=== PATIENT | male | born 1945 | race Caucasian/White ===

== ENCOUNTER 2021-05-28 05:04 | Observation (INO) | payer MEDICARE, OTHER ==
[~2021-05-28] VITALS: Ht 180.3 cm; Wt 81.6 kg
[2021-05-28 05:40] LABS: HEMOGLOBIN 15.6 gm/dl (14.0-17.5); RED BLOOD COUNT 4.64 M/UL (4.20-5.50); WHITE BLOOD COUNT 15.2 K/UL (4.5-11.0)
[2021-05-28 06:09] LABS: BUN/CREATININE RATIO 24 (0-10)
[2021-05-28] MEDS ORDERED: METFORMIN HCL500 MG PO (10:13)
[2021-05-28] MEDS ORDERED: ZOCOR20 MG PO (10:16)
[2021-05-28] MEDS ORDERED: HYDROCHLOROTHIA25 MG PO (10:17)
[2021-05-28] MEDS ORDERED: LISINOPRIL10 MG PO (10:18)
[2021-05-28] MEDS ORDERED: ENBREL50 MG/1 ML INJ (10:19)
[2021-05-28] MEDS ORDERED: ASPIRIN EC81 MG PO (10:20)
[2021-05-28] MEDS ORDERED: HYDROXYCHLOROQ200 MG PO (10:21)
[2021-05-29 03:16] LABS: HEMOGLOBIN 11.9 gm/dl (14.0-17.5); RED BLOOD COUNT 3.68 M/UL (4.20-5.50); WHITE BLOOD COUNT 10.4 K/UL (4.5-11.0)
[2021-05-29] MEDS ORDERED: HYDROCODON-ACE1 EAC4 PO (13:32)
[2021-05-29] MEDS ORDERED: COLACE100 MG PO (13:32)
== END 2021-05-29 17:30 | disposition home or self-care (01) ==
LOC: ER1 05:04 → CDU 08:33 → MED SURG 4 17:43
PROVIDERS: Student in an Organized Health Care Education/Training Program; ADMIT Surgery
PROC: 0FT44ZZ Resection of Gallbladder, Percutaneous Endoscopic Approach (ICD-10-PCS; principal; 2021-05-28 11:25)
DX: K80.00 Calculus of gallbladder with acute cholecystitis without obstruction (principal); K82.A1 Gangrene of gallbladder in cholecystitis; I10 Essential (primary) hypertension; E78.5 Hyperlipidemia, unspecified; G89.29 Other chronic pain; M54.9 Dorsalgia, unspecified; E11.9 Type 2 diabetes mellitus without complications; M06.9 Rheumatoid arthritis, unspecified; E78.00 Pure hypercholesterolemia, unspecified; E07.9 Disorder of thyroid, unspecified; Z20.822 Contact with and (suspected) exposure to COVID-19; Z79.82 Long term (current) use of aspirin; Z79.84 Long term (current) use of oral hypoglycemic drugs; Z79.899 Other long term (current) drug therapy
CPT/HCPCS: 36415; 80053; 81001; 82550; 82553; 82962; 83605; 83690; 83874; 84484; 85025; 85027; 93005; 96374; 96375; 99285; G0378; J0295; J0690; J0696; J1100; J1170; J1650; J2001; J2270; J2370; J2405; J2704; J2710; J3010; J7030; J7120; Q9967; U0002